=== PATIENT | female | born 1940 | race Caucasian/White ===

== ENCOUNTER → 2022-08-29 | Day surgery (SDC) | payer MEDICARE, BC ==
[~2022-08-29] MED LIST: Midazolam 1 MG/ML 2 ML SDV IV ONE; acetaZOLAMIDE 500 MG Cap.ER PO ONE; fentaNYL 100 MCG/2 ML SDV IV ONE
[2022-08-29 12:56] VITALS: BP 112/69; PULSE 81
== END ==
LOC: FB.SDS 11:28
PROVIDERS: ATTEND Ophthalmology
DX: H25.813 Combined forms of age-related cataract, bilateral (principal); H18.891 Other specified disorders of cornea, right eye; H04.123 Dry eye syndrome of bilateral lacrimal glands; H35.363 Drusen (degenerative) of macula, bilateral; I12.9 Hypertensive chronic kidney disease with stage 1 through stage 4 chronic kidney disease, or unspecified chronic kidney disease; N18.32 Chronic kidney disease, stage 3b; M81.0 Age-related osteoporosis without current pathological fracture; K21.9 Gastro-esophageal reflux disease without esophagitis; F41.9 Anxiety disorder, unspecified; D47.2 Monoclonal gammopathy; Z88.5 Allergy status to narcotic agent; Z88.1 Allergy status to other antibiotic agents; Z79.899 Other long term (current) drug therapy; Z98.890 Other specified postprocedural states
CPT/HCPCS: 00142; 66984; A9270; J2250; J3010; V2632

== ENCOUNTER 2022-10-17 08:28 | Day surgery (SDC) | payer MEDICARE, BC ==
[2022-10-17] MEDS ORDERED: fentaNYL 100 MCG/2 ML SDV IV ONE (08:29)
[2022-10-17] MEDS ORDERED: Sodium Chloride 0.9% 10 ML Syringe IV ONE (08:29)
[2022-10-17] MEDS ORDERED: Midazolam 1 MG/ML 2 ML SDV IV ONE (08:29)
[2022-10-17] MEDS ORDERED: Sodium Chloride 0.9% 10 ML Syringe FLUSH PRN (08:45)
[2022-10-17] MEDS ORDERED: Lactated Ringers 1,000 ML IV PRN (08:45)
[2022-10-17] MEDS ORDERED: acetaZOLAMIDE 500 MG Cap.ER PO ONE (10:30)
[2022-10-17 11:57] VITALS: BP 116/62; PULSE 76
== END 2022-10-17 10:30 | disposition home or self-care (01) ==
LOC: FB.SDS 08:28
PROVIDERS: ATTEND Ophthalmology
DX: H25.813 Combined forms of age-related cataract, bilateral (principal); H18.891 Other specified disorders of cornea, right eye; H04.123 Dry eye syndrome of bilateral lacrimal glands; H35.363 Drusen (degenerative) of macula, bilateral; Z79.899 Other long term (current) drug therapy; Z79.82 Long term (current) use of aspirin; Z88.5 Allergy status to narcotic agent
CPT/HCPCS: 00142-QZ; A9270-GY; J2250; J3010; J3490; V2632